=== PATIENT | male | born 1975 | race Asian ===

== ENCOUNTER 2016-11-01 09:04 | Outpatient (CLI) | payer OTHER ==
[2016-11-01] MEDS ORDERED: GADOBUTROL 10 MMOL/10 ML VIAL IVP ONE (09:40)
== END 2016-11-01 09:05 | disposition home or self-care (01) ==
DX: M50.223 Other cervical disc displacement at C6-C7 level (principal); M47.812 Spondylosis without myelopathy or radiculopathy, cervical region; M50.321 Other cervical disc degeneration at C4-C5 level
CPT/HCPCS: 72156; A9585